=== PATIENT | male | born 1980 | race Hispanic/Latino ===

== ENCOUNTER 2018-02-15 08:36 | Emergency (ER) | payer SELFPAY ==
[2018-02-15] MEDS ORDERED: ONDANSETRON 4 MG/2 ML VIAL ONE (08:45)
[2018-02-15] MEDS ORDERED: HYDROMORPHONE HCL 1 MG/ML INJ ONE (08:45)
[2018-02-15] MEDS ORDERED: NA CHLORIDE 0.9% 1,000 ML ONE (08:45)
[2018-02-15 08:57] LABS: Absolute Lymphocytes (CBC) 1.1 K/uL (0.7-4.9); Absolute Monocytes 0.3 K/uL (0.1-1.3); Absolute Neutrophil 6.5 K/uL (1.8-8.0); Basophils % 0.5 % (0-1.3); Eosinophils % 0.9 % (0-4.4); Hematocrit 43.7 % (39.6-49.0); Lymphocytes % 13.4 % (15.3-44.8); MCH 30.9 pg (27.0-35.0); MCV 90.3 fL (80-100); MPV 10.4 fL (7.6-11.3); Monocytes % 3.6 % (3.3-12.3); RBC Red Blood Cell Count 4.84 M/uL (4.33-5.43)
--- NOTE | 2018-02-15 09:08 | RAD REPORT ---
EXAM DESCRIPTION: CT - Stone Protocol - 02/15/2018 8:51 am CLINICAL HISTORY: Flank pain. RLQ abd pain, sudden onset COMPARISON: No comparisons TECHNIQUE: Axial images were obtained without oral or IV contrast. Lack of contrast limits solid org an and vascular assessment. The [id number] spans the entirety of the system partially obscuring uppermost abdomen and lung bases. Coronal reformatted images were obtained and reviewed. All CT scans are performed using dose optimization technique as appropriate and may include automated exposure control or mA/KV adjustment according to patient size. FINDINGS: The lower lung marti are clear. Diffuse fatty liver is seen. The spleen is normal. The pancreas and adrenal glands are normal. No pat hologic lymphadenopathy in the abdomen or pelvis. 2 mm stone is present along the bladder aspect of the UVJ on the right. Mild right hydronephrosis. 2 mm stone is seen inferior calyx left kidney. No bowel obstruction, free air, free fluid or abscess. Normal appendix noted. No significant bony abnormality. IMPRESSION: 2 mm stone along the bladder aspect of the right UVJ with mild right hydronephrosis. 2 mm stone inferior calyx left kidney. Fatty liver.
[2018-02-15 09:13] LABS: ALT/SGPT 115 U/L (12-78); AST/SGOT 57 U/L (15-37); Albumin 4.4 g/dL (3.4-5.0); Alkaline Phosphatase 43 U/L (45-117); BUN Blood Urea Nitrogen 20 mg/dL (7-18); Bicarbonate 27 mmol/L (21-32); Bilirubin Direct < 0.1 mg/dL (0-0.2); Bilirubin Total 0.4 mg/dL (0.2-1.0); Glucose Level 157 mg/dL (74-106); Lipase 303 U/L (73-393); Protein, Total 7.9 g/dL (6.4-8.2); Sodium Level 140 mmol/L (136-145)
[2018-02-15] MEDS ORDERED: TAMSULOSIN 0.4 MG SR CAP ONE (09:19)
[2018-02-15] MEDS ORDERED: KETOROLAC 30 MG/ML INJ ONE (09:19)
[2018-02-15] MEDS ORDERED: MAGNESIUM SULFATE 1 gm IVPB 1 GM/100 ML BAG IV ONE (09:19)
--- NOTE | 2018-02-15 09:35 | ER ---
Nurse's Notes [facility] Name: Bob Vera Age: 37 yrs Sex: Male : 1980 Arrival Date: 02/15/2018 Time: 08:37 Bed 6 Private MD: Diagnosis: Ureterolithiasis Presentation: 02/15 08:31 Presenting complaint: EMS states: RLQ pain that started at 0630 this morning. Pt curled sv up on the side of the bed in pain. Transition of care: patient was not received from another setting of care. Onset of symptoms was February 15, 2018 at 06:30. Risk Assessment: Do you want to hurt yourself or someone else? Patient reports no desire to harm self or others. Initial Sepsis Screen: Does the patient meet any 2 criteria? No. Patient's initial sepsis screen is negative. Does the patient have a suspected source of infection? No. Patient's initial sepsis screen is negative. Care prior to arrival: None. 08:31 Method Of Arrival: EMS: [facility] 08:31 Acuity: BETH 3 sv Triage Assessment: 08:31 General: Appears distressed, uncomfortable, Behavior is cooperative, restless. Pain: sv Complains of pain in right lower quadrant Pain does not radiate. Pain currently is 10 out of 10 on a pain scale. Quality of pain is described as sharp, Pain began 2 hours ago. Is continuous, Alleviated by nothing. Noted to be grimacing, guarding, restless. EENT: No signs and/or symptoms were reported regarding the EENT system. Neuro: Level of Consciousness is awake, alert, obeys commands, Oriented to person, place, time, situation, Moves all extremities. Full function Gait is steady. Respiratory: Respiratory effort is even, unlabored, Respiratory pattern is regular, symmetrical. GI: Abdomen is flat, Abd is soft X 4 quads Abdomen is tender to palpation in right lower quadrant Reports lower abdominal pain. : Denies burning with urination, inability to void, pain. Derm: Skin is clammy, Skin is normal, Skin temperature is cool. Historical: - Allergies: 08:45 No Known Allergies; sv - Home Meds: 08:45 None [Active]; sv - PMHx: 08:45 None; sv - PSHx: 08:45 None; sv - Immunization history:: Adult Immunizations up to date. - Family history:: not pertinent. - Ebola Screening: : No symptoms or risks identified at this time. - Hospitalizations: : No recent hospitalization is reported. Screenin:45 Abuse screen: Denies threats or abuse. Denies injuries from another. Nutritional sv screening: No deficits noted. Tuberculosis screening: No symptoms or risk factors identified. Fall Risk None identified. Assessment: 08:40 Reassessment: Patient appears in no apparent distress at this time. Patient and/or sv family updated on plan of care and expected duration. Pain level reassessed. Patient is alert, oriented x 3, equal unlabored respirations, skin warm/dry/pink. 09:20 Reassessment: Patient appears in no apparent distress at this time. Patient and/or sv family updated on plan of care and expected duration. Pain level reassessed. Patient is alert, oriented x 3, equal unlabored respirations, skin warm/dry/pink. Patient states feeling better. Patient states symptoms have improved. 10:02 Reassessment: Pt waiting to finish the magnesium infusion before discharge. sv Vital Signs: 08:32 BP 147 / 97; Pulse 70; Resp 24; Temp 98.2(TE); Pulse Ox 99% ; Pain 10/10; aa5 10:04 BP 124 / 77; Pulse 68; Resp 16; Pulse Ox 99% ; sv ED Course: 08:35 Initial lab(s) drawn, by me, sent to lab. Inserted saline lock: 18 gauge in right sv antecubital area, using aseptic technique. Blood collected. Flushed right antecubital with 5 ml normal saline. 08:37 Patient arrived in ED. sv 08:38 Chema Leija MD is Attending Physician. rn 08:39 Pooja Green RN is Primary Nurse. sv 08:44 Triage completed. sv 08:45 Arm band placed on. sv 08:45 Patient has correct armband on for positive identification. Placed in gown. Bed in low sv position. Call light in reach. Pulse ox on. NIBP on. Door closed. Head of bed elevated. 08:[address] via wheelchair. sv 08:49 CT completed. Patient tolerated procedure well. Patient moved back from CT. sj 08:50 CT Stone Protocol In Process Unspecified. EDMS 08:[address] Patient [address] back from [address]. sv 09:35 Kimo Miller MD is Referral Physician. rn 10:23 No provider procedures requiring assistance completed. IV discontinued, intact, hb bleeding controlled, No redness/swelling at site. Pressure dressing applied. Administered Medications: 08:40 Drug: NS 0.9% 1000 ml Route: IV; Rate: 1000 ml; Site: right antecubital; aa5 10:20 Follow up: Response: No adverse reaction; IV Status: Completed infusion; IV Intake: sv 1000ml 08:40 Drug: Zofran 4 mg Route: IVP; Site: right antecubital; aa5 08:55 Follow up: Response: No adverse reaction sv 08:40 Drug: Dilaudid 1 mg Route: IVP; Site: right antecubital; aa5 08:55 Follow up: Response: No adverse reaction sv 09:20 Drug: Magnesium Sulfate 1 grams Route: IVPB; Infused Over: 1 hrs; Site: right sv antecubital; 10:20 Follow up: Response: No adverse reaction; IV Status: Completed infusion; IV Intake: sv 100ml 09:20 Drug: TORadol 30 mg Route: IVP; Site: right antecubital; sv 10:00 Follow up: Response: No adverse reaction sv 09:20 Drug: Flomax 0.4 mg Route: PO; sv 10:00 Follow up: Response: No adverse reaction sv Intake: 10:20 IV: 100ml; Total: 100ml. sv 10:20 IV: 1000ml; Total: 1100ml. sv Outcome: 09:35 Discharge ordered by MD. rn 10:23 Discharged to home ambulatory. hb 10:23 Condition: stable 10:23 Discharge instructions given to patient, Instructed on discharge instructions, follow up and referral plans. medication usage, Demonstrated understanding of instructions, follow-up care, medications, Prescriptions given X 2. 10:23 Patient left the ED. hb Signatures: Dispatcher [employer] EDMS Pooja Green RN RN sv Jones, Susan sj Nieto, Roman, MD MD rn Calderon, Audri, RN RN aa5 Agustina Siegel RN RN hb Corrections: (The following items were deleted from the chart) 08:44 08:32 BP 147 / 97; Pulse 70bpm; Resp 24bpm; Pulse Ox 99%; Pain 10/10; sv aa5 10:03 08:40 Reassessment: Patient appears in no apparent distress at this time. Patient sv and/or family updated on plan of care and expected duration. Pain level reassessed. Patient is alert, oriented x 3, equal unlabored respirations, skin warm/dry/pink. Patient states feeling better. Patient states symptoms have improved. sv
--- NOTE | 2018-02-15 09:36 | EDPHYS ---
Physician Documentation [facility] Name: Bob Vera Age: 37 yrs Sex: Male : 1980 Arrival Date: 02/15/2018 Time: 08:37 Bed 6 Private MD: ED Physician Chema Leija HPI: 02/15 08:39 This 37 yrs old Male presents to ER via Unassigned with complaints of rn Abdominal Pain. 08:39 The patient presents with abdominal pain right lower quadrant. Onset: The rn symptoms/episode began/occurred 2 hour(s) ago. The symptoms do not radiate. Associated signs and symptoms: Pertinent negatives: nausea and vomiting, anorexia, blood in stools, diarrhea, dysuria, fever, hematuria, testicular pain. Modifying factors: The symptoms are alleviated by nothing, the symptoms are aggravated by movement, touching the area. Severity of pain: At its worst the pain was moderate in the emergency department the pain is unchanged. The patient has not experienced similar symptoms in the past. Reports acute onset RLQ abd pain, began suddenly 2 hours ago, felt fine this AM prior to work, no hx of stones, ate breakfast, states "entire right side hurts". NO vomiting/diarrhea/urinary symptoms.. Historical: - Allergies: 08:45 No Known Allergies; sv - Home Meds: 08:45 None [Active]; sv - PMHx: 08:45 None; sv - PSHx: 08:45 None; sv - Immunization history:: Adult Immunizations up to date. - Family history:: not pertinent. - Ebola Screening: : No symptoms or risks identified at this time. - Hospitalizations: : No recent hospitalization is reported. ROS: 08:39 Constitutional: Negative for fever, chills, and weight loss, Eyes: Negative for injury, rn pain, redness, and discharge, Neck: Negative for injury, pain, and swelling, Cardiovascular: Negative for chest pain, palpitations, and edema, Respiratory: Negative for shortness of breath, cough, wheezing, and pleuritic chest pain, Abdomen/GI: + abd pain : Negative for injury, bleeding, discharge, and swelling, MS/Extremity: Negative for injury and deformity, Skin: Negative for injury, rash, and discoloration, Neuro: Negative for headache, weakness, numbness, tingling, and seizure. Exam: 08:39 Constitutional: This is a well developed, well nourished patient who is awake, alert, rn appears uncomfortable and writhing Head/Face: Normocephalic, atraumatic. Eyes: Pupils equal round and reactive to light, extra-ocular motions intact. Cardiovascular: Regular rate and rhythm with a normal S1 and S2. No gallops, murmurs, or rubs. Normal PMI, no JVD. No pulse deficits. Respiratory: Lungs have equal breath sounds bilaterally, clear to auscultation and percussion. No rales, rhonchi or wheezes noted. No increased work of breathing, no retractions or nasal flaring. Abdomen/GI: soft, + mild tenderness right abdomen, no rebound MS/ Extremity: Pulses equal, no cyanosis. Neurovascular intact. Full, normal range of motion. Equal circumference. Neuro: Awake and alert, GCS 15, oriented to person, place, time, and situation. Cranial nerves II-XII grossly intact. Motor strength 5/5 in all extremities. Sensory grossly intact. Vital Signs: 08:32 BP 147 / 97; Pulse 70; Resp 24; Temp 98.2(TE); Pulse Ox 99% ; Pain 10/10; aa5 10:04 BP 124 / 77; Pulse 68; Resp 16; Pulse Ox 99% ; sv MDM: 08:38 Patient medically screened. rn 09:34 Differential diagnosis: appendicitis, non-specific abd pain, Ureterolithiasis. Data rn reviewed: vital signs, nurses notes, lab test result(s), radiologic studies, CT scan, and as a result, I will discharge patient. Counseling: I had a detailed discussion with the patient and/or guardian regarding: the historical points, exam findings, and any diagnostic results supporting the discharge/admit diagnosis, lab results, radiology results, the need for outpatient follow up, to return to the emergency department if symptoms worsen or persist or if there are any questions or concerns that arise at home. Response to treatment: the patient's symptoms have markedly improved after treatment, and as a result, I will discharge patient. Special discussion: I discussed with the patient/guardian in detail that at this point there is no indication for admission to the hospital. It is understood, however, that if the symptoms persist or worsen the patient needs to return immediately for re-evaluation. ED course: Pt sleeping, pain markedly improved, likely dropped into bladder now, will dc home with pain meds and pcp f/u. . 02/15 08:38 Order name: Basic Metabolic Panel; Complete Time: 09:18 rn 02/15 08:38 Order name: CBC with Diff; Complete Time: 09: rn 02/15 08:38 Order name: Hepatic Function; Complete Time: 09:18 rn 02/15 08:38 Order name: Lipase; Complete Time: 09:18 rn 02/15 08:38 Order name: CT Stone Protocol; Complete Time: 09: rn 02/15 08:38 Order name: IV Saline Lock; Complete Time: 08:43 rn 02/15 08:38 Order name: Labs collected and sent; Complete Time: 08:43 rn Administered Medications: 08:40 Drug: NS 0.9% 1000 ml Route: IV; Rate: 1000 ml; Site: right antecubital; aa5 10:20 Follow up: Response: No adverse reaction; IV Status: Completed infusion; IV Intake: sv 1000ml 08:40 Drug: Zofran 4 mg Route: IVP; Site: right antecubital; aa5 08:55 Follow up: Response: No adverse reaction sv 08:40 Drug: Dilaudid 1 mg Route: IVP; Site: right antecubital; aa5 08:55 Follow up: Response: No adverse reaction sv 09:20 Drug: Magnesium Sulfate 1 grams Route: IVPB; Infused Over: 1 hrs; Site: right sv antecubital; 10:20 Follow up: Response: No adverse reaction; IV Status: Completed infusion; IV Intake: sv 100ml 09:20 Drug: TORadol 30 mg Route: IVP; Site: right antecubital; sv 10:00 Follow up: Response: No adverse reaction sv 09:20 Drug: Flomax 0.4 mg Route: PO; sv 10:00 Follow up: Response: No adverse reaction sv Disposition: 02/15/18 09:35 Discharged to Home. Impression: Ureterolithiasis. - Condition is Stable. - Discharge Instructions: Kidney Stones. - Prescriptions for Zofran ODT 4 mg Oral tablet,disintegrating - place 1 tablet by TRANSLINGUAL route every 8-10 hours As needed; 15 tablet. Tylenol- Codeine #3 300-30 mg Oral Tablet - take 1 tablet by ORAL route every 6 hours As needed; 15 tablet. - Medication Reconciliation Form, Thank You Letter, Antibiotic Education, Prescription Opioid Use, Work release form form. - Follow up: Kimo Miller MD; When: As needed; Reason: Recheck today's complaints, Re-evaluation by your physician. - Problem is new. - Symptoms have improved. Signatures: Dispatcher [employer] EDPooja Braxton RN RN Chema Leija MD MD rn Calderon, Audri, RN RN aa5 Agustina Siegel RN RN hb Corrections: (The following items were deleted from the chart) 10: 09:35 02/15/2018 09:35 Discharged to Home. Impression: Ureterolithiasis. Condition is hb Stable. Forms are Medication Reconciliation Form, Thank You Letter, Antibiotic Education, Prescription Opioid Use. Follow up: Kimo Miller; When: As needed; Reason: Recheck today's complaints, Re-evaluation by your physician. Problem is new. Symptoms have improved. rn
== END 2018-02-15 10:23 | disposition home or self-care (01) ==
LOC: ER 08:36
DX: N20.1 Calculus of ureter (principal)
CPT/HCPCS: 36415; 74176; 76377; 80048; 80076; 83690; 85025; 96361; 96365; 96375; 99285; J1170; J2405; J3475; J7030